=== PATIENT | male | born 1950 | race Caucasian/White ===

== ENCOUNTER 2018-02-18 18:52 | Emergency (ER) | payer OTHER ==
[2018-02-18 20:39] LABS: Protime INR 1.05
[2018-02-18 20:40] LABS: Absolute Lymphocytes (CBC) 1.2 K/uL (0.7-4.9); Absolute Monocytes 0.6 K/uL (0.1-1.3); Absolute Neutrophil 5.6 K/uL (1.8-8.0); Basophils % 0.5 % (0-1.3); Eosinophils % 2.1 % (0-4.4); Hematocrit 44.8 % (39.6-49.0); Lymphocytes % 15.7 % (15.3-44.8); MPV 8.2 fL (7.6-11.3); Monocytes % 8.2 % (3.3-12.3); RBC Red Blood Cell Count 4.56 M/uL (4.33-5.43)
[2018-02-18 21:01] LABS: ALT/SGPT 29 U/L (12-78); AST/SGOT 20 U/L (15-37); Albumin 4.1 g/dL (3.4-5.0); Alkaline Phosphatase 88 U/L (45-117); BUN Blood Urea Nitrogen 17 mg/dL (7-18); Bicarbonate 27 mmol/L (21-32); Bilirubin Direct 0.2 mg/dL (0-0.2); Bilirubin Total 0.5 mg/dL (0.2-1.0); Glucose Level 107 mg/dL (74-106); Magnesium 2.4 mg/dL (1.8-2.4); NT PRO-BNP 76 pg/mL (<125); Potassium 4.1 mmol/L (3.5-5.1); Protein, Total 8.5 g/dL (6.4-8.2); Sodium Level 141 mmol/L (136-145); Troponin (Emerg Dept Use Only) < 0.02 ng/mL (0.0-0.045)
--- NOTE | 2018-02-18 21:07 | RAD REPORT ---
EXAM DESCRIPTION: RAD - Chest Pa And Lat (2 Views) - 02/18/2018 8:57 pm CLINICAL HISTORY: COUGH Chest pain. COMPARISON: No comparisons FINDINGS: The lungs are clear. The heart is normal in size. No displaced fractures. IMPRESSION: No acute or concerning finding suspected.
--- NOTE | 2018-02-18 21:34 | EDPHYS ---
Physician Documentation [facility] Name: Thien Porter Age: 67 yrs Sex: Male : 1950 Arrival Date: 02/18/2018 Time: 18:56 Bed 23 Private MD: ED Physician Gene Anaya HPI: 02/18 21:35 This 67 yrs old Male presents to ER via EMS with complaints of Blood Pressure pm1 Problem, Non-Productive Cough. 21:35 Patient presenting to the ER with complaints of hypertension and tachycardia. Patient pm1 was brought to the ER by EMS when he presented to an urgent care for complaints of sore throat and dry cough for the past 2 weeks. When patient was at the urgent care he started getting anxious about possible causes for his dry cough and started to feel extremely anxious. he has a history of anxiety and take Xanax as needed. He was transported to the ER due to elevated blood pressure and heart rate. Severity of symptoms: in the emergency department the symptoms have improved. Historical: - Allergies: 18:59 PENICILLINS; hb 18:59 Sulfa (Sulfonamide Antibiotics); hb - Immunization history:: Adult Immunizations up to date. - Social history:: Smoking status: Patient/guardian denies using tobacco. - Ebola Screening: : No symptoms or risks identified at this time. ROS: 21:35 Constitutional: Negative for fever, chills, and weight loss, Eyes: Negative for injury, pm1 pain, redness, and discharge. 21:35 Neck: Negative for injury, pain, and swelling, Cardiovascular: Negative for chest pain, palpitations, and edema. 21:35 Abdomen/GI: Negative for abdominal pain, nausea, vomiting, diarrhea, and constipation, Back: Negative for injury and pain, : Negative for injury, bleeding, discharge, and swelling, MS/Extremity: Negative for injury and deformity, Skin: Negative for injury, rash, and discoloration, Neuro: Negative for headache, weakness, numbness, tingling, and seizure. 21:35 ENT: Positive for sore throat, Negative for ear pain. 21:35 Respiratory: Positive for cough, Negative for shortness of breath, sputum production, wheezing. 21:35 Psych: Positive for anxiety, Negative for depression. Exam: 21:35 Constitutional: This is a well developed, well nourished patient who is awake, alert, pm1 and in no acute distress. Head/Face: Normocephalic, atraumatic. Eyes: Pupils equal round and reactive to light, extra-ocular motions intact. Lids and lashes normal. Conjunctiva and sclera are non-icteric and not injected. Cornea within normal limits. Periorbital areas with no swelling, redness, or edema. ENT: Nares patent. No nasal discharge, no septal abnormalities noted. Tympanic membranes are normal and external auditory canals are clear. Oropharynx with no redness, swelling, or masses, exudates, or evidence of obstruction, uvula midline. Mucous membranes moist. Neck: Trachea midline, no thyromegaly or masses palpated, and no cervical lymphadenopathy. Supple, full range of motion without nuchal rigidity, or vertebral point tenderness. No Meningismus. Chest/axilla: Normal chest wall appearance and motion. Nontender with no deformity. No lesions are appreciated. Cardiovascular: Regular rate and rhythm with a normal S1 and S2. No gallops, murmurs, or rubs. Normal PMI, no JVD. No pulse deficits. Respiratory: Lungs have equal breath sounds bilaterally, clear to auscultation and percussion. No rales, rhonchi or wheezes noted. No increased work of breathing, no retractions or nasal flaring. Abdomen/GI: Soft, non-tender, with normal bowel sounds. No distension or tympany. No guarding or rebound. No evidence of tenderness throughout. Back: No spinal tenderness. No costovertebral tenderness. Full range of motion. Skin: Warm, dry with normal turgor. Normal color with no rashes, no lesions, and no evidence of cellulitis. MS/ Extremity: Pulses equal, no cyanosis. Neurovascular intact. Full, normal range of motion. Neuro: Awake and alert, GCS 15, oriented to person, place, time, and situation. Cranial nerves II-XII grossly intact. Motor strength 5/5 in all extremities. Sensory grossly intact. Cerebellar exam normal. Normal gait. 21:35 Psych: Behavior/mood is anxious, Affect is animated. Vital Signs: 18:59 BP 169 / 112; Pulse 88; Resp 16; Temp 97.9(TE); Pulse Ox 97% on R/A; Pain 2/10; hb 19:34 BP 158 / 99; Pulse 79; Resp 17; Pulse Ox 96% on R/A; Pain 2/10; ed1 20:29 BP 160 / 100; Pulse 87; Resp 17; Pulse Ox 94% on R/A; Pain 2/10; ed1 21:25 BP 175 / 103; Pulse 91; Resp 16; Pulse Ox 97% on R/A; Pain 2/10; ed1 MDM: 19:17 Patient medically screened. pm1 21:32 Data reviewed: vital signs. Data interpreted: Pulse oximetry: on room air is 97 %. pm1 Interpretation: normal. Counseling: I had a detailed discussion with the patient and/or guardian regarding: the historical points, exam findings, and any diagnostic results supporting the discharge/admit diagnosis, lab results, radiology results, the need for outpatient follow up, to return to the emergency department if symptoms worsen or persist or if there are any questions or concerns that arise at home. 02/18 20:04 Order name: Basic Metabolic Panel; Complete Time: 21:11 pm1 02/18 20:04 Order name: CBC with Diff; Complete Time: 20:54 pm1 02/18 20:04 Order name: LFT's; Complete Time: 21:11 pm1 02/18 20:04 Order name: Magnesium; Complete Time: 21:11 pm1 02/18 20:04 Order name: NT PRO-BNP; Complete Time: 21:11 pm1 02/18 20:04 Order name: PT-INR; Complete Time: 20:54 pm1 02/18 20:04 Order name: Troponin (emerg Dept Use Only); Complete Time: 21:11 pm1 02/18 20:04 Order name: EKG; Complete Time: 20:05 pm1 02/18 20:04 Order name: Chest Pa And Lat (2 Views) XRAY; Complete Time: 21:11 pm1 02/18 20:04 Order name: TSH; Complete Time: 21:11 pm1 02/18 20:04 Order name: [place] Screen Profile; Complete Time: 21:11 pm1 02/18 20:04 Order name: Strep; Complete Time: 20:54 pm1 02/18 20:04 Order name: Flu; Complete Time: 20:54 pm1 02/18 20:53 Order name: Throat Culture EDPR 02/18 20:04 Order name: Cardiac monitoring; Complete Time: 20:25 pm1 02/18 20:04 Order name: EKG - Nurse/Tech; Complete Time: 20:46 pm1 02/18 20:04 Order name: IV Saline Lock; Complete Time: 20:25 pm1 02/18 20:04 Order name: Labs collected and sent; Complete Time: 20:24 pm1 02/18 20:04 Order name: O2 Per Protocol; Complete Time: 20:24 pm1 02/18 20:04 Order name: O2 Sat Monitoring; Complete Time: 20:24 pm1 Administered Medications: No medications were administered Disposition: 02/18/18 21:33 Discharged to Home. Impression: Acute upper respiratory infection, unspecified, Acute stress reaction. - Condition is Stable. - Discharge Instructions: Upper Respiratory Infection, Adult, Viral Respiratory Infection, Stress and Stress Management. - Prescriptions for Guaifenesin AC 10- 100 mg/5 mL Oral Liquid - take 10 milliliter by ORAL route every 4 hours As needed; 240 milliliter. - Medication Reconciliation Form, Thank You Letter, Antibiotic Education, Prescription Opioid Use form. - Follow up: Emergency Department; When: As needed; Reason: Worsening of condition. Follow up: Private Physician; When: 2 - 3 days; Reason: Recheck today's complaints, Continuance of care, Re-evaluation by your physician. - Problem is new. - Symptoms have improved. Addendum: 02/25/2018 06:53 Co-signature as Attending Physician, Gene Anaya MD I agree with the assessment and t w4 plan of care. Signatures: Dispatcher [employer] EDMS Nena Milligan, SLASHER SLASHER ed1 Luis Cancino, PATTERN CLEANER PATTERN CLEANER pm1 Екатерина White, Gene Sen RN, MD MD tw4 Corrections: (The following items were deleted from the chart) 02/18 21:42 21:33 02/18/2018 21:33 Discharged to Home. Impression: Acute upper respiratory ed1 infection, unspecified; Acute stress reaction. Condition is Stable. Forms are Medication Reconciliation Form, Thank You Letter, Antibiotic Education, Prescription Opioid Use. Follow up: Emergency Department; When: As needed; Reason: Worsening of condition. Follow up: Private Physician; When: 2 - 3 days; Reason: Recheck today's complaints, Continuance of care, Re-evaluation by your physician. Problem is new. Symptoms have improved. pm1
--- NOTE | 2018-02-18 21:34 | ER ---
Nurse's Notes [facility] Name: Thien Porter Age: 67 yrs Sex: Male : 1950 Arrival Date: 02/18/2018 Time: 18:56 Bed 23 Private MD: Diagnosis: Acute upper respiratory infection, unspecified;Acute stress reaction Presentation: 02/18 18:57 Presenting complaint: EMS states: Sent from Urgent Care for BP 200s/100s and HR "too hb fast to palpate." On scene Bp 166/100, HR 80s, NSR on 12 lead. Pt c/o nonproductive cough, malaise, and sore throat x 2 weeks. Transition of care: Urgent Care. Onset of symptoms was February 18, 2018. Risk Assessment: Do you want to hurt yourself or someone else? Patient reports no desire to harm self or others. Care prior to arrival: None. 18:57 Method Of Arrival: EMS: [facility] hb 18:57 Acuity: JOSELYN 3 hb 19:34 Initial Sepsis Screen: Does the patient meet any 2 criteria? No. Patient's initial ed1 sepsis screen is negative. Does the patient have a suspected source of infection? No. Patient's initial sepsis screen is negative. Historical: - Allergies: 18:59 PENICILLINS; hb 18:59 Sulfa (Sulfonamide Antibiotics); hb - Immunization history:: Adult Immunizations up to date. - Social history:: Smoking status: Patient/guardian denies using tobacco. - Ebola Screening: : No symptoms or risks identified at this time. Screenin:34 Abuse screen: Denies threats or abuse. Denies injuries from another. Nutritional ed1 screening: No deficits noted. Tuberculosis screening: No symptoms or risk factors identified. Fall Risk None identified. Assessment: 19:34 General: Appears in no apparent distress. Behavior is calm, cooperative. Pain: ed1 Complains of pain in chest Pain does not radiate. Pain currently is 2 out of 10 on a pain scale. Quality of pain is described as aching, Pain began 2-3 days ago. Is continuous, Aggravated by coughing. Neuro: Level of Consciousness is awake, alert, obeys commands, Oriented to person, place, time, situation. Cardiovascular: Denies chest pain, Heart tones S1 S2 present. Respiratory: Reports shortness of breath cough that is Airway is patent Respiratory effort is even, unlabored, Respiratory pattern is regular, symmetrical, Breath sounds are clear bilaterally. GI: No signs and/or symptoms were reported involving the gastrointestinal system. : No signs and/or symptoms were reported regarding the genitourinary system. EENT: No signs and/or symptoms were reported regarding the EENT system. Derm: Skin is intact, is healthy with good turgor, Skin is dry, Skin is normal, Skin temperature is warm. Musculoskeletal: Circulation, motion, and sensation intact. 20:29 Reassessment: Patient appears in no apparent distress at this time. No changes from ed1 previously documented assessment. Patient and/or family updated on plan of care and expected duration. Pain level reassessed. Patient is alert, oriented x 3, equal unlabored respirations, skin warm/dry/pink. 21:25 Reassessment: Patient appears in no apparent distress at this time. No changes from ed1 previously documented assessment. Patient and/or family updated on plan of care and expected duration. Pain level reassessed. Patient is alert, oriented x 3, equal unlabored respirations, skin warm/dry/pink. Patient states symptoms have not improved. Vital Signs: 18:59 BP 169 / 112; Pulse 88; Resp 16; Temp 97.9(TE); Pulse Ox 97% on R/A; Pain 2/10; hb 19:34 BP 158 / 99; Pulse 79; Resp 17; Pulse Ox 96% on R/A; Pain 2/10; ed1 20:29 BP 160 / 100; Pulse 87; Resp 17; Pulse Ox 94% on R/A; Pain 2/10; ed1 21:25 BP 175 / 103; Pulse 91; Resp 16; Pulse Ox 97% on R/A; Pain 2/10; ed1 ED Course: 18:56 Patient arrived in ED. hb 18:58 Nena Milligan LVN is Primary Nurse. ed1 18:59 Triage completed. hb 18:59 Arm band placed on. hb 19:17 Luis Cancino NP is PHCP. pm1 19:17 Ricco German MD is Attending Physician. pm1 19:34 Patient has correct armband on for positive identification. Placed in gown. Bed in low ed1 position. Call light in reach. Side rails up X 1. Adult w/ patient. gambling monitor on. Pulse ox on. NIBP on. 20:15 Inserted saline lock: 20 gauge in right antecubital area, using aseptic technique. jp3 Blood collected. 20:15 Initial lab(s) drawn, by me, sent to lab. EKG done, by ED staff, reviewed by Luis Cancino NP Flu and/or RSV swab sent to lab. Strep swab sent to lab. 20:45 Flu Sent. jp3 20:45 Strep Sent. jp3 20:45 [place] Screen Profile Sent. jp3 20:45 TSH Sent. jp3 20:45 Basic Metabolic Panel Sent. jp3 20:45 CBC with Diff Sent. jp3 20:45 LFT's Sent. jp3 20:45 Magnesium Sent. jp3 20:45 NT PRO-BNP Sent. jp3 20:45 Troponin (emerg Dept Use Only) Sent. jp3 20:54 Chest Pa And Lat (2 Views) XRAY In Process Unspecified. EDMS 21:12 Gene Anaya MD is Attending Physician. pm1 21:41 No provider procedures requiring assistance completed. IV discontinued, intact, ed1 bleeding controlled, No redness/swelling at site. Pressure dressing applied. Administered Medications: No medications were administered Outcome: 21:33 Discharge ordered by MD. pm1 21:41 Discharged to home ambulatory, with family. ed1 21:41 Condition: good 21:41 Discharge instructions given to patient, Instructed on discharge instructions, follow up and referral plans. medication usage, Demonstrated understanding of instructions, follow-up care, medications, Prescriptions given X 1. 21:42 Patient left the ED. ed1 Signatures: Dispatcher [employer] EDMS Nena Milligan, HELMET HAT BRIM CUTTER HELMET HAT BRIM CUTTER ed1 Luis Cancino, CRISTINA STITCH BONDING MACHINE DRAWER IN pm1 Екатерина White, YOLANDE RN Ancelmo Warner jp3
--- NOTE | 2018-02-19 06:52 | EKG ---
Test Date: 2018-02-18 Test Time: 20:36:07 Watch [place] Grinder: SEEMA MEASUREMENT RESULTS: Intervals: Rate: 84 WY: 152 QRSD: 82 QT: 358 QTc: 423 [place]: P: 30 WY: 152 QRS: -18 T: 32 INTERPRETIVE STATEMENTS: Normal sinus rhythm Moderate voltage criteria for LVH, may be normal variant Borderline ECG No previous ECG available for comparison Electronically Signed On 02-19-18 06:51:52 ENVIRONMENTAL STUDIES PROFESSOR by Gonzalez Robles
== END 2018-02-18 21:42 | disposition home or self-care (01) ==
LOC: ER 18:52
DX: J06.9 Acute upper respiratory infection, unspecified (principal); F43.0 Acute stress reaction; F41.9 Anxiety disorder, unspecified
CPT/HCPCS: 36415; 71046; 80048; 80076; 83735; 83880; 84443; 84484; 85025; 85610; 86308; 87070; 87081; 87804; 93005; 99285